=== PATIENT | female | born 1975 | race Caucasian/White ===

== ENCOUNTER 2018-09-28 20:27 | Emergency (ER) | payer OTHER ==
[~2018-09-28] VITALS: Ht 162.6 cm; Wt 72.7 kg
[2018-09-28 20:36] VITALS: TEMP 98.1
[2018-09-28 22:25] LABS: BASO % 0.3 % (0.0-2.0); EOS # 0.1 (0.0-0.7); EOS % 1.9 % (0-4.0); GRAN # 4.1 (1.4-6.5); GRAN % 55.8 % (42.2-75.2); HEMOGLOBIN 12.1 g/dl (12.5-16.0); LYMPH # 2.6 (1.2-3.4); LYMPH % 35.1 % (20.0-51.0); MEAN CELL VOLUME 90 fl (80.0-100.0); MEAN CORPUSCULAR HEMOGLOBIN 29 pg (27.0-31.0); MEAN CORPUSCULAR HGB CONC 33 g/dl (33.0-37.0); MEAN PLATELET VOLUME 10.2 fl (7.4-10.4); MONO # 0.5 (0.1-0.6); MONO % 6.6 % (1.7-9.3); PLATELET COUNT 236 K/mm3 (130-400); RED BLOOD COUNT 4.11 M/mm3 (4.10-5.30); REDCELL DISTRIBUTION WIDTH-CV 13.2 % (11.5-14.5)
[2018-09-28 22:38] LABS: BILIRUBIN,TOTAL 0.2 mg/dL (0.0-1.0); CALCIUM 9.4 mg/dL (8.4-10.2); CREATININE, serum 0.74 (0.52-1.25); POTASSIUM 3.9 mmol/L (3.4-5.0); TOTAL PROTEIN 7.5 gm/dL (6.4-8.2)
[2018-09-28] MEDS ORDERED: MEDROL 4MG DOSPA4 MG PO (22:44)
[2018-09-28 23:20] VITALS: BP 136/90; PULSE 64
== END 2018-09-28 23:20 | disposition home or self-care (01) ==
LOC: COL.ER 20:27 → EDBD 20:28 → COL.ER 23:20
PROVIDERS: Family Medicine
DX: M54.16 Radiculopathy, lumbar region (principal); Z98.890 Other specified postprocedural states; Y93.72 Activity, wrestling

== ENCOUNTER 2021-01-20 11:07 | Emergency (ER) | payer OTHER ==
[~2021-01-20] VITALS: Ht 162.6 cm; Wt 81.4 kg
[~2021-01-20 11:07] MED LIST: MEDROL 4MG DOSPA4 MG PO
[2021-01-20 11:37] VITALS: BP 128/83; PULSE 66; TEMP 98.1
[2021-01-20] MEDS ORDERED: NORCO 325 MG-51 TAB PO (13:14)
== END 2021-01-20 14:00 | disposition home or self-care (01) ==
LOC: COL.ER 11:07
DX: S96.911A Strain of unspecified muscle and tendon at ankle and foot level, right foot, initial encounter (principal); W18.09XA Striking against other object with subsequent fall, initial encounter

== ENCOUNTER 2023-08-19 17:48 | Emergency (ER) | payer OTHER ==
[~2023-08-19] VITALS: Ht 162.6 cm; Wt 81.8 kg
[~2023-08-19 17:48] MED LIST changes: +CEPHALEXIN500 M1 PO; +NORCO 325 MG-51 TAB PO
[2023-08-19 17:55] VITALS: TEMP 97.9
[2023-08-19 18:17] LABS: COLLECTION METHOD CLEAN CATCH
[2023-08-19 18:25] LABS: URINE APPEARANCE CLEAR (CLEAR/HAZY); URINE BLOOD NEGATIVE (NEGATIVE); URINE COLOR YELLOW (YELLOW); URINE GLUCOSE NEGATIVE (NEGATIVE); URINE KETONE NEGATIVE (NEGATIVE); URINE NITRATE NEGATIVE (NEGATIVE); URINE PROTEIN(semi-quant) NEGATIVE (NEGATIVE); URINE UROBILINOGEN 0.2 E.U/dL (0.2-1.0)
[2023-08-19] MEDS ORDERED: Ondansetron 4 MG/2 ML VIAL IV ONE (18:30)
[2023-08-19 18:32] LABS: BASO % 0.3 % (0.0-2.0); EOS # 0.1 K/mm3 (0.0-0.7); EOS % 1.5 % (0.0-4.0); GRAN # 3.9 K/mm3 (1.4-6.5); GRAN % 57.3 % (42.2-75.2); HEMOGLOBIN 12.6 g/dl (12.5-16.0); LYMPH # 2.4 K/mm3 (1.2-3.4); LYMPH % 35.9 % (20.0-51.0); MEAN CELL VOLUME 89 fl (80.0-100.0); MEAN CORPUSCULAR HEMOGLOBIN 29 pg (27-31); MEAN CORPUSCULAR HGB CONC 32 g/dl (33.0-37.0); MEAN PLATELET VOLUME 9.9 fl (7.4-10.4); MONO # 0.3 K/mm3 (0.1-0.6); MONO % 4.9 % (1.7-9.3); PLATELET COUNT 252 K/mm3 (130-400); RED BLOOD COUNT 4.38 M/mm3 (4.10-5.30); REDCELL DISTRIBUTION WIDTH-CV 13.2 % (11.5-14.5)
[2023-08-19 18:48] LABS: ALANINE AMINOTRANSFERASE 15 U/L (0-55); ALBUMIN 4.2 gm/dL (3.5-5.0); ALKALINE PHOSPHATASE 89 U/L (40-150); ANION GAP 10 mmol/L (7-16); AST,SGOT 19 U/L (5-34); BILIRUBIN,TOTAL 0.3 mg/dL (0.2-1.2); BLOOD UREA NITROGEN 12 mg/dL (7-19); CALCIUM 10.1 mg/dL (8.4-10.2); CARBON DIOXIDE 25 mmol/L (22-29); CHLORIDE 107 mmol/L (98-107); CREATININE, serum 0.84 mg/dL (0.57-1.11); GLUCOSE 99 mg/dL (70-99); POTASSIUM 3.8 mmol/L (3.5-4.5); SODIUM 142 mmol/L (136-145); TOTAL PROTEIN 7.6 gm/dL (6.2-8.1)
[2023-08-19 18:57] LABS: TROPONIN-I < 0.010 ng/mL (0.00-0.033)
[2023-08-19] MEDS ORDERED: Ketorolac 30 MG/ML VIAL IV ONE (19:15)
[2023-08-19] MEDS ORDERED: predniSONE 50 MG,predniSONE 10 MG PO ONE (19:30)
[2023-08-19] MEDS ORDERED: valACYclovir 500 MG TAB PO ONE (19:30)
[2023-08-19] MEDS ORDERED: diphenhydrAMINE 50 MG/ML 1 ML VIAL IV ONE (19:30)
[2023-08-19] MEDS ORDERED: VALTREX1 GM PO (20:35)
[2023-08-19] MEDS ORDERED: ZOFRAN ODT4 MG PO (20:35)
[2023-08-19] MEDS ORDERED: PREDNISONE20 MG PO (20:35)
[2023-08-19] MEDS ORDERED: Home Ondansetron ODT 4 MG #2 ODT/PACK PO ONE (20:45)
[2023-08-19 21:01] VITALS: BP 111/75; PULSE 79
== END 2023-08-19 21:00 | disposition home or self-care (01) ==
LOC: COL.ER 17:48
PROVIDERS: Nurse Practitioner Primary Care
DX: G51.0 Bell's palsy (principal); R11.0 Nausea; F17.290 Nicotine dependence, other tobacco product, uncomplicated; Z86.69 Personal history of other diseases of the nervous system and sense organs
CPT/HCPCS: J1200; J1885; J2405; J7512

== ENCOUNTER 2023-08-24 18:39 | Inpatient (IN) | payer OTHER ==
[~2023-08-24] VITALS: Ht 162.6 cm; Wt 84.5 kg
[~2023-08-24 18:39] MED LIST changes: +PREDNISONE20 MG PO; +VALTREX1 GM PO; +ZOFRAN ODT4 MG PO
[2023-08-24] MEDS ORDERED: NS 1,000 ML IV ONE (19:30)
[2023-08-24 19:39] LABS: BASO % 0.1 % (0.0-2.0); GRAN # 8.6 K/mm3 (1.4-6.5); GRAN % 84.3 % (42.2-75.2); HEMATOCRIT 39.6 % (37.0-47.0); HEMOGLOBIN 12.8 g/dl (12.5-16.0); LYMPH # 1.3 K/mm3 (1.2-3.4); LYMPH % 12.5 % (20.0-51.0); MEAN CELL VOLUME 90 fl (80.0-100.0); MEAN CORPUSCULAR HEMOGLOBIN 29 pg (27-31); MEAN CORPUSCULAR HGB CONC 32 g/dl (33.0-37.0); MEAN PLATELET VOLUME 10.6 fl (7.4-10.4); MONO # 0.2 K/mm3 (0.1-0.6); MONO % 2.2 % (1.7-9.3); PLATELET COUNT 319 K/mm3 (130-400); RED BLOOD COUNT 4.41 M/mm3 (4.10-5.30); REDCELL DISTRIBUTION WIDTH-CV 13.6 % (11.5-14.5)
[2023-08-24 19:48] LABS: ALANINE AMINOTRANSFERASE 19 U/L (0-55); ALBUMIN 3.7 gm/dL (3.5-5.0); ALKALINE PHOSPHATASE 95 U/L (40-150); ANION GAP 11 mmol/L (7-16); AST,SGOT 16 U/L (5-34); BILIRUBIN,TOTAL 0.2 mg/dL (0.2-1.2); BLOOD UREA NITROGEN 19 mg/dL (7-19); CALCIUM 9.2 mg/dL (8.4-10.2); CHLORIDE 106 mmol/L (98-107); CREATININE, serum 0.86 mg/dL (0.57-1.11); GLUCOSE 123 mg/dL (70-99); POTASSIUM 4.1 mmol/L (3.5-4.5); SODIUM 139 mmol/L (136-145); TOTAL PROTEIN 7.1 gm/dL (6.2-8.1)
[2023-08-24 20:02] LABS: TROPONIN-I < 0.010 ng/mL (0.00-0.033)
[2023-08-24 20:38] LABS: COLLECTION METHOD CLEAN CATCH
[2023-08-24 20:48] LABS: PH 6.5 (5.0-8.5); URINE APPEARANCE CLEAR (CLEAR/HAZY); URINE BLOOD NEGATIVE (NEGATIVE); URINE COLOR YELLOW (YELLOW); URINE GLUCOSE NEGATIVE (NEGATIVE); URINE KETONE NEGATIVE (NEGATIVE); URINE NITRATE POSITIVE (NEGATIVE); URINE PROTEIN(semi-quant) NEGATIVE (NEGATIVE)
[2023-08-24] MEDS ORDERED: Iohexol 300 - 100 ML VIAL IV ONE (20:55)
[2023-08-24 21:00] VITALS: BP_SYST 151
[2023-08-24] MEDS ORDERED: MINOXIDIL 2.5 PO (21:07)
[2023-08-24] MEDS ORDERED: ZYRTEC 10MG10 MG PO (21:08)
[2023-08-24] MEDS ORDERED: AVODART 0.5MG0.5 MG PO (21:08)
[2023-08-24] MEDS ORDERED: ASPIRIN E.C. 8181 MG PO (21:09)
[2023-08-24] MEDS ORDERED: AMBIEN 10MG10 MG PO (21:09)
[2023-08-24] MEDS ORDERED: ZOLOFT 100MG100 MG PO (21:09)
[2023-08-24] MEDS ORDERED: Sertraline 100 MG TAB PO SCH (21:10)
[2023-08-24] MEDS ORDERED: VITAMIN D31000 I1 PO (21:10)
[2023-08-24] MEDS ORDERED: Cetirizine 10 MG TAB PO SCH (21:10)
[2023-08-24] MEDS ORDERED: Cholecalciferol (Vit D3) 1000 Units TAB PO SCH (21:11)
[2023-08-24] MEDS ORDERED: cefTRIAXone 1 G in Water For Injection,Sterile 10 ML IV SCH (22:00)
--- NOTE | 2023-08-24 22:55 | NUR ---
PATIENT ADMITTED TO 311 WITH , CARITO BEDSIDE. VS ARE: BP 151/84, 46 PULSE, 98.1 TEMP, RR 18, 100% ON RA. LT SIDE FACIAL DROOPING NOTED WITH DECREASED LUE SENSATION. NEUROS ARE WNL. TELE IS NS BRADYCARDIC-PATIENT IS ASYMPTOMATIC. PATIENT ORIENTED TO ROOM.
[2023-08-24 23:00] VITALS: BP 151/84; PULSE 46; TEMP 98.1
[2023-08-24] MEDS ORDERED: MULTIVITAMIN200 MCG PO (23:26)
[2023-08-25] VITALS (11 sets, daily range): BP systolic 98–168; BP diastolic 59–86; PULSE 39–95; TEMP 97.6–98.1
--- NOTE | 2023-08-25 01:10 | NUR ---
CALL PLACED TO [facility]. PATIENT C/O OF HEADACHE AND BP 168 SYSTOLIC. TORB FOR TYLENOL GIVEN.
[2023-08-25] MEDS ORDERED: Acetaminophen 500 MG TAB PO PRN (01:15)
[2023-08-25] MEDS ORDERED: valACYclovir 500 MG TAB PO SCH (02:09)
--- NOTE | 2023-08-25 07:20 | NUR ---
Report received from [facility]. Pt was admitted from ED overnight. Pt reports nausea at this time; no PRN in AUG for nausea. Jennifer states she will call provider for order. Pt alert and oriented. Pt shows this nurse and Jennifer Pardo video of herself that she took a few hours earlier of abnormal eye movement. Jeane Pardo also notified provider of this. Pt offers no further complaints. Call light in reach and bed alarm on.
--- NOTE | 2023-08-25 07:35 | NUR ---
CALL PLACED TO [facility]. LEFT MESSAGE ON VOICEMAIL. PATIENT DEVELOPED NYSTAGMUS WITH SEVERE NAUSEA. AWAITING CALL BACK AND ORDERS. SHIFT CHANGE TO RONNI BREEN.
--- NOTE | 2023-08-25 10:35 | NUR ---
Initial visit; Patient experiencing difficulty staying awake. Showroom Manager introduced herself and offered God's blessings and to keep her and her in her prayers. Elif thanked Showroom Manager for coming to see her.
[2023-08-25] MEDS ORDERED: Gadoterate 20 ML VIAL IV ONE (11:03)
--- NOTE | 2023-08-25 11:05 | NUR ---
biofuels plant construction worker met with patient and Luis Fernando ([phone]) to discuss discharge planning. Patient lives at home in [place] with her , does not have an assigned PCP but goes to clinic on [address] for medical care. Patient uses [facility] pharmacy. Patient denies use of DME and states she is independent with ADLs. stated patient needs to talk with SW regarding situation with their daughter which was noted on white board in room per nursing, patient noted to being treated for depression prior to hospitalization. Patient denied wanting to discuss situation at this time and stated she only wants to focus on why she's admitted to hospital. Mental health resources will be provided to patient and . PT screen recommending [facility] Discharge: TBD
[2023-08-25 11:42] LABS: CHOLESTEROL RISK RATIO 2.7
--- NOTE | 2023-08-25 20:30 | NUR ---
UPON SHIFT ASSESSMENT, RA WAS UP IN BED WITH CARITO BEDSIDE. SHE IS AXO X 4 BUT IS ANXIOUS. EYE TWITCHING STILL NOTED AND NEURO CONSULT TO TAKE PLACE TONIGHT AT 21:30. STROKE SCALE IS 1 AND NUERO SCORE 2. VS ARE WNL WITH THE EXCEPTION OF TELE-NS MIRIAM AT 47 BPM. BLLE STILL EXHIBIT OCCASIONAL TWITCHING/JUMPINESS. DISTAL PULSES AND SENSATION GOOD. CALL LIGHT WITHIN REACH, BED ALARM ON.
[2023-08-25] MEDS ORDERED: Atorvastatin 40 MG TAB PO SCH (21:00)
[2023-08-25] MEDS ORDERED: Melatonin 3 MG TAB PO SCH (23:00)
--- NOTE | 2023-08-25 23:00 | NUR ---
CALL PLACED TO [facility]PITALIST[facility]. PATIENT HAVING DIFFICULTY SLEEPING. TORB FOR 6MG MELATONIN GIVEN.
[2023-08-26] VITALS (10 sets, daily range): BP systolic 100–132; BP diastolic 62–84; PULSE 49–64; TEMP 97.7–98.6
--- NOTE | 2023-08-26 02:30 | NUR ---
ROUNDED ON PATIENT. RA WAS EASILY AROUSED WHEN ENTERING ROOM, MELATONIN LIKELY INEFFECTIVE. SHE STATES NO NEEDS AT THIS TIME. BED ALARM ON, CALL LIGHT WITHIN REACH.
[2023-08-26 06:36] LABS: BASO % 0.2 % (0.0-2.0); EOS # 0.1 K/mm3 (0.0-0.7); GRAN # 3.6 K/mm3 (1.4-6.5); GRAN % 39.6 % (42.2-75.2); LYMPH # 4.9 K/mm3 (1.2-3.4); LYMPH % 53.5 % (20.0-51.0); MEAN CELL VOLUME 87 fl (80.0-100.0); MEAN CORPUSCULAR HEMOGLOBIN 29 pg (27-31); MEAN CORPUSCULAR HGB CONC 34 g/dl (33.0-37.0); MEAN PLATELET VOLUME 9.6 fl (7.4-10.4); MONO # 0.5 K/mm3 (0.1-0.6); MONO % 5.3 % (1.7-9.3); PLATELET COUNT 267 K/mm3 (130-400); RED BLOOD COUNT 4.13 M/mm3 (4.10-5.30); REDCELL DISTRIBUTION WIDTH-CV 13.8 % (11.5-14.5)
[2023-08-26 06:38] LABS: HEMATOCRIT 35.8 % (37.0-47.0)
[2023-08-26 06:52] LABS: CALCIUM 8.4 mg/dL (8.4-10.2); CREATININE, serum 0.87 mg/dL (0.57-1.11); POTASSIUM 3.7 mmol/L (3.5-4.5)
[2023-08-26] MEDS ORDERED: Polyethylene Glycol 3350 17 GM PDS PO SCH (09:00)
[2023-08-26] MEDS ORDERED: Docusate Sodium 100 MG CAP PO SCH (09:00)
--- NOTE | 2023-08-26 10:00 | NUR ---
PT SITTING IN CHAIR UPON ENTERING. ASSESSMENT DONE, MEDS GIVEN PER ORDER. PT DENIES PAIN. INT TO LEFT AC PATENT. PT REPORTS NO BOWEL MOVEMENT FOR 2 WEEKS, HOSPITALIST NOTIFIED. PTS ASKING FOR A NICOTINE PATCH FOR PT WHO AGREES. PT GOT A SHOWER AND DENIES NEEDS. PTS ASKING ABOUT TRANSFER TIME FOR PT. THIS NURSE NOTIFIED HIM THAT THE APPROPRIATE STAFF IS WORKING ON THE TRANSFER BUT THERE IS NO SCHEDULED TIME RIGHT NOW. CHAIR ALARM ON, CALL LIGHT IN REACH
--- NOTE | 2023-08-26 11:24 | NUR ---
Special Weapons And Tactics Officer spoke with Hospitalist who is requesting a transfer for patient to a higher level of care.
--- NOTE | 2023-08-26 12:25 | NUR ---
MOMO GALVAN, CALLED AND NOTIFIED OF PTS WISHES FOR NICOTINE PATCH
[2023-08-26] MEDS ORDERED: Nicotine 7 MG DAILY PATCH TD SCH (12:26)
--- NOTE | 2023-08-26 13:43 | NUR ---
NICOTINE PATCH TO LEFT UPPER ARM.
--- NOTE | 2023-08-26 18:23 | NUR ---
Call placed to [facility]. Reviewed chart. Patient will be possible candidate. Will reach out to family soon. Awaiting call back. [phone]
--- NOTE | 2023-08-26 19:17 | NUR ---
report called to research medical rn
== END 2023-08-26 22:04 | disposition short-term general hospital (02) | DRG 58 ==
LOC: COL.ER 18:39 → MEDICAL 21:55
PROVIDERS: Internal Medicine; Nurse Practitioner Family; Physician Assistant; ADMIT Internal Medicine
DX: R90.82 White matter disease, unspecified (principal); G51.0 Bell's palsy; G93.40 Encephalopathy, unspecified; N39.0 Urinary tract infection, site not specified; I08.1 Rheumatic disorders of both mitral and tricuspid valves; F32.A Depression, unspecified; G43.909 Migraine, unspecified, not intractable, without status migrainosus; R00.1 Bradycardia, unspecified; F41.9 Anxiety disorder, unspecified; G47.00 Insomnia, unspecified; H54.61 Unqualified visual loss, right eye, normal vision left eye; H02.402 Unspecified ptosis of left eyelid; K59.00 Constipation, unspecified; R29.6 Repeated falls; F17.290 Nicotine dependence, other tobacco product, uncomplicated; L65.9 Nonscarring hair loss, unspecified; Z79.82 Long term (current) use of aspirin
CPT/HCPCS: A9575; G0378; J0696; J1650; J7030; Q3014; Q9967